=== PATIENT | female | born 1965 | race Caucasian/White ===

== ENCOUNTER 2018-01-18 11:26 | Emergency (ER) | END 2018-01-18 12:49 | disposition home or self-care (01) ==

== ENCOUNTER 2018-05-29 22:55 | Emergency (ER) | payer MEDICAID ==
[~2018-05-29] VITALS: Ht 165.1 cm; Wt 85.9 kg
[~2018-05-29 22:55] MED LIST: ALBU8.5H8 INH; AMOX500C2 PO; DM/P295L11 PO; PRED20TA PO; PROM6.2515 PO
[2018-05-29 22:58] VITALS: Ht 165.1 cm; Wt 85.9 kg
--- NOTE | 2018-05-29 23:08 | ERD ---
ER Documentation Chief Complaint Chief Complaint abdominal pain x 5 days HPI The patient is a 52-year-old female, resenting to the ER because of intermittent right-sided abdominal pain and epigastric abdominal pain for 1 week, denies similar symptoms previously, complains of intermittent cough, denies fever, nasal congestion, chest pain, dyspnea, vomiting, dysuria, diarrhea, vaginal bleeding. She does not smoke nor drink Past medical history: None Past surgical history: ROS All systems reviewed and are negative except as per history of present illness. Medications Home Meds Active Scripts Ibuprofen* (Motrin*) 600 Mg Tab, 600 MG PO Q6H PRN for PAIN AND OR ELEVATED TEMP, #20 TAB Prov:GEETHA DAWSON MD 05/30/18 Sulfamethoxazole/Trimethoprim* (Bactrim Ds* Tablet) 1 Each Tablet, 1 TAB PO BID, #14 TAB Prov:GEETHA DAWSON MD 05/30/18 Promethazine Hcl* (Promethazine Hcl* Syrup) 6.25 Mg/5 Ml Syrup, 6.25 MG PO Q6H PRN for COUGH, #60 ML Prov:JACKSON FINNEY MD 01/18/18 Albuterol Sulfate* (Proair HFA*) 8.5 Gm Hfa.aer.ad, 2 PUFF INH Q4H PRN for WHEEZING AND SOB, #1 INHALER Prov:JACKSON FINNEY MD 01/18/18 Prednisone* (Prednisone*) 20 Mg Tab, 40 MG PO DAILY for 4 Days, TAB Prov:JACKSON FINNEY MD 01/18/18 Amoxicillin* (Amoxicillin*) 500 Mg Cap, 500 MG PO TID for 7 Days, CAP Prov:JACKSON FINNEY MD 01/18/18 Reported Medications Dm/P-Ephed/Acetaminoph/Doxylam (Nyquil D Cold & Flu Liquid) 295 Ml Liquid, 295 ML PO DAILY 11/02/10 Allergies Allergies: Coded Allergies: No Known Drug Allergy (Verified Allergy, Mild, 01/18/18) PMhx/Soc History of Surgery: Yes (C SECTION X 1) Anesthesia Reaction: No Hx Neurological Disorder: No Hx Respiratory Disorders: No Hx Cardiac Disorders: No Hx Psychiatric Problems: No Hx Miscellaneous Medical Probl: No Hx Alcohol Use: No Hx Substance Use: No Hx Tobacco Use: No Physical Exam Vitals Vital Signs Date Temp Pulse Resp B/P (MAP) Pulse Ox O2 O2 Flow FiO2 Time Delivery Rate 05/29/18 98.4 83 18 136/76 97 22:58 (96) Physical Exam Const: No acute distress. Head: Atraumatic. Eyes: Normal Conjunctiva. ENT: Normal External Ears, Nose and Mouth. Neck: Full range of motion. No meningismus. Resp: Clear to auscultation bilaterally. Cardio: Regular rate and rhythm. Abd: Soft, non distended, normal bowel sounds, vague and diffuse abdominal pain, more tenderness at the right upper quadrant in the right lower quadrant, no rigidity, rebound, CVA tenderness Skin: No petechiae or rashes. Back: No midline or flank tenderness. Ext: No cyanosis, or edema. Neur: Awake and alert. No focal deficit Psych: Normal Mood and Affect. Result Diagram: 05/29/18 2319 05/29/18 2319 Results 24 hrs Laboratory Tests Test 05/29/18 23:19 05/29/18 23:31 05/30/18 01:21 White Blood Count 12.4 10^3/ul Red Blood Count 4.01 10^6/ul Hemoglobin 11.0 g/dl Hematocrit 34.5 % Mean Corpuscular Volume 86.0 fl Mean Corpuscular Hemoglobin 27.4 pg Mean Corpuscular 31.9 g/dl Hemoglobin Concent Red Cell Distribution Width 14.8 % Platelet Count 324 10^3/UL Mean Platelet Volume 10.0 fl Immature Granulocytes % 0.400 % Neutrophils % 62.1 % Lymphocytes % 25.4 % Monocytes % 7.6 % Eosinophils % 3.9 % Basophils % 0.6 % Nucleated Red Blood Cells % 0.0 /100WBC Immature Granulocytes # 0.050 10^3/ul Neutrophils # 7.7 10^3/ul Lymphocytes # 3.2 10^3/ul Monocytes # 0.9 10^3/ul Eosinophils # 0.5 10^3/ul Basophils # 0.1 10^3/ul Nucleated Red Blood Cells # 0.0 10^3/ul Sodium Level 143 mmol/L Potassium Level 3.7 mmol/L Chloride Level 98 mmol/L Carbon Dioxide Level 31 mmol/L Anion Gap 14 Blood Urea Nitrogen 14 mg/dl Creatinine 0.68 mg/dl Est Glomerular Filtrat Rate mL/min > 60 mL/min Glucose Level 114 mg/dl Calcium Level 9.2 mg/dl Total Bilirubin 0.2 mg/dl Direct Bilirubin 0.00 mg/dl Indirect Bilirubin 0.2 mg/dl Aspartate Amino Transf (AST/SGOT) 26 IU/L Alanine 20 IU/L Aminotransferase (ALT/SGPT) Alkaline Phosphatase 164 IU/L Total Protein 8.0 g/dl Albumin 4.1 g/dl Globulin 3.90 g/dl Albumin/Globulin Ratio 1.05 Lipase 70 U/L Bedside Urine pH (LAB) 5.5 Bedside Urine Protein (LAB) Negative Bedside Urine Glucose (UA) Negative Bedside Urine Ketones (LAB) Negative Bedside Urine Blood 3+ Bedside Urine Nitrite (LAB) Negative Bedside Urine Leukocyte Esterase 2+ (L POC Beta HCG, Qualitative NEGATIVE Current Medications Medications Dose Sig/Perez Start Time Status Last (Trade) Ordered Route PRN Stop Time Admin Dose Reason Admin Ketorolac 30 mg ONCE STAT 05/30/18 DC Tromethamine IV 01:21 (Toradol) 05/30/18 01:22 Procedures/[place] [id number] Radiology Main Line: [phone] DIAGNOSTIC IMAGING REPORT Patient: CUAUHTEMOC MURPHY : 1965 Age: 52 Sex: F [id number] DOS: 05/29/18 2315 Ordering MD: GEETHA DAWSON MD Location: E/R Room/Bed: PROCEDURE: CT Abdomen and pelvis without contrast. CLINICAL INDICATION: Abdominal pain. TECHNIQUE: CT scan of the abdomen and pelvis was performed on a multi- detector high-resolution CT scanner. Contiguous axial images were obtained from the lung bases to the ischial tuberosities without intravenous contrast. Coronal and sagittal reformatted images were also obtained. Images were reviewed on the PACS workstation. DICOM images are available. One or more of the following dose reduction techniques were used: - Automated exposure control. - Adjustment of the mA and/or kV according to patient size. - Use of iterative reconstruction technique. Exam CTD/vol = 21.18 mGy. Total exam DLP = 1228.45 mGy-cm. COMPARISON: None. FINDINGS: Evaluation of the lung bases demonstrates minimal bibasilar atelectasis. Abdomen: The liver is normal in size. There is no focal mass or dilatation of the biliary tree. The patient is status post cholecystectomy. The spleen, pancreas and bilateral adrenal glands are within normal limits. Bilateral kidneys are normal in size with no contour deforming mass identified. There is no radiopaque renal or ureteral calculus identified. There is bilateral minimal hydronephrosis. There is no retroperitoneal adenopathy. The abdominal aorta is of normal caliber. There is no bowel obstruction or free air. A normal appendix is identified. There is no diverticulosis or diverticulitis. There is no ascites. Pelvis: The bladder is unremarkable. The uterus is enlarged with multiple la rge fibroids with the largest measuring 12.7 x 12.7 cm. There is no significant pelvic adenopathy or free fluid. Evaluation of the osseous structures demonstrates no suspicious lytic or blastic lesion. IMPRESSION: Enlarged uterus with multiple large fibroids. Bilateral minimal hydronephrosis likely secondary to enlarged uterus. Status post cholecystectomy. .Rajiv Kruse MD, Date Time Electronically viewed and signed by .Rajiv Kruse MD, MD on 05/30/2018 01:03 .T/ CC: GEETHA DAWSON MD [phone] MEDICAL MAKING DECISION: The patient is a 52-year-old female, presenting with acute cystitis, fibroids, is stable for outpatient follow-up, was treated with Toradol 30 mg IV for pain with good response. The differential diagnoses considered include but are not limited to choledocholithiasis, cholangitis, pancreatitis, hepatitis, gastritis, peptic ulcer disease, gastric ulcer, appendicitis, cystitis, diverticulitis, partial small bowel obstruction. Departure Diagnosis: Primary Impression: UTI (urinary tract infection) Additional Impressions: Fibroids Anemia Condition: Good Comments She was discharged with Bactrim DS and Motrin I discussed the findings with the patient. I advised the patient to follow-up with the primary physician in about 2-3 days, sooner if needed and return if any concern. Disclaimer: Inadvertent spelling and grammatical errors are likely due to EHR/dictation software use and do not reflect on the overall quality of patient care. Also, please note that the electronic time recorded on this note does not necessarily reflect the actual time of the patient encounter. GEETHA DAWSON MD May 29, 2018 23:08
[2018-05-30] MEDS ORDERED: IBUP-1542 PO (01:19)
[2018-05-30] MEDS ORDERED: SULF1TAB31 PO (01:19)
[2018-05-30] MEDS ORDERED: KETOROLAC 30 MG INJ IV STA (01:21)
[2018-05-30 01:50] VITALS: BP 102/55; PULSE 65; RESP 17
== END 2018-05-30 01:50 | disposition home or self-care (01) ==
LOC: E/R 22:55
DX: N39.0 Urinary tract infection, site not specified (principal); D25.9 Leiomyoma of uterus, unspecified; D64.9 Anemia, unspecified
CPT/HCPCS: 74176; 76705; 80053; 81003; 81025; 83690; 85025; J1885; 36415; 96374

== ENCOUNTER 2018-09-25 11:41 | Emergency (ER) | payer MEDICAID ==
[~2018-09-25] VITALS: Ht 162.6 cm; Wt 87.3 kg
[~2018-09-25 11:41] MED LIST changes: +ACET-141 PO; -ALBU8.5H8 INH; -AMOX500C2 PO; +CEPH-443 PO; -DM/P295L11 PO; +IBUP-1542 PO; -PRED20TA PO; -PROM6.2515 PO; +SULF1TAB31 PO
[2018-09-25 11:44] VITALS: Ht 162.6 cm; Wt 87.3 kg
[2018-09-25 14:14] VITALS: BP 160/78; PULSE 62; RESP 16
--- NOTE | 2018-09-27 12:22 | ERD ---
ER Documentation Chief Complaint Chief Complaint bilateral foot swelling/pain HPI 53-year-old female no significant past medical history presents with bilateral foot and leg pain and swelling x3 weeks. She says that the pain is getting worse in the past few days. She states that she has 8 out of 10 pain over the bilateral lower legs and ankle. There is also swelling noted. States that the pain is worse with walking. Described as a dull sensation. She has not had prior similar symptoms. Denies fevers or chills. Denies chest pain or shortness of breath. Denies abdominal pain, nausea, vomiting. No other modifying factors noted. No treatment tried at home. ROS All systems reviewed and are negative except as per history of present illness. Medications Home Meds Active Scripts Acetaminophen* (Acetaminophen*) 500 MG Extra Strength Tablet, 500 MG PO Q4H PRN for PAIN AND OR ELEVATED TEMP, #30 TAB Prov:GEETHA DE LA CRUZ DO 09/25/18 Ibuprofen* (Motrin*) 600 Mg Tab, 600 MG PO Q6H PRN for PAIN AND OR ELEVATED TEMP, #20 TAB Prov:GEETHA DAWSON MD 05/30/18 Sulfamethoxazole/Trimethoprim* (Bactrim Ds* Tablet) 1 Each Tablet, 1 TAB PO BID, #14 TAB Prov:GEETHA DAWSON MD 05/30/18 Allergies Allergies: Coded Allergies: No Known Drug Allergy (Unverified Allergy, Mild, 05/30/18) PMhx/Soc Medical and Surgical Hx: pt denies Medical Hx History of Surgery: Yes (C SECTION X 1) Anesthesia Reaction: No Hx Neurological Disorder: No Hx Respiratory Disorders: No Hx Cardiac Disorders: No Hx Psychiatric Problems: No Hx Miscellaneous Medical Probl: No Hx Alcohol Use: No Hx Substance Use: No Hx Tobacco Use: No Smoking Status: Never smoker FmHx Family History: No coronary disease Physical Exam Vitals Vital Signs Date Temp Pulse Resp B/P (MAP) Pulse Ox O2 O2 Flow FiO2 Time Delivery Rate 09/25/18 97.9 62 16 160/78 100 Room Air 14:14 (105) 09/25/18 98.4 72 20 160/72 97 11:44 (101) Physical Exam Const: No acute distress Resp: Clear to auscultation bilaterally Cardio: Regular rate and rhythm, no murmurs Skin: No petechiae or rashes Back: No midline or flank tenderness Neur: Awake and alert Psych: Normal Mood and Affect Lower Extremity -bilateral: Skin: No laceration, mild nonpitting edemia bilateral lower legs noted Compartments: Soft Motor: Full active range of motion hip/knee/ankle/foot Sensation: Intact to light touch FDWS/MF/LF/P surfaces. Bones: Nontender pelvis/knee/proximal tibia/ malleoli/foot Joints: No effusion or laxity Pulses/Perfusion: 2+ DP, Capillary refill < 2 seconds Result Diagram: 09/25/18 1228 09/25/18 1228 Results 24 hrs Laboratory Tests Test 09/25/18 12:28 White Blood Count 6.1 10^3/ul Red Blood Count 3.76 10^6/ul Hemoglobin 9.9 g/dl Hematocrit 31.8 % Mean Corpuscular Volume 84.6 fl Mean Corpuscular Hemoglobin 26.3 pg Mean Corpuscular Hemoglobin Concent 31.1 g/dl Red Cell Distribution Width 13.7 % Platelet Count 240 10^3/UL Mean Platelet Volume 10.2 fl Immature Granulocytes % 0.200 % Neutrophils % 49.5 % Lymphocytes % 36.5 % Monocytes % 6.6 % Eosinophils % 6.2 % Basophils % 1.0 % Nucleated Red Blood Cells % 0.0 /100WBC Immature Granulocytes # 0.010 10^3/ul Neutrophils # 3.0 10^3/ul Lymphocytes # 2.2 10^3/ul Monocytes # 0.4 10^3/ul Eosinophils # 0.4 10^3/ul Basophils # 0.1 10^3/ul Nucleated Red Blood Cells # 0.0 10^3/ul Sodium Level 141 mmol/L Potassium Level 3.2 mmol/L Chloride Level 105 mmol/L Carbon Dioxide Level 29 mmol/L Anion Gap 7 Blood Urea Nitrogen 13 mg/dl Creatinine 0.56 mg/dl Est Glomerular Filtrat Rate mL/min > 60 mL/min Glucose Level 146 mg/dl Calcium Level 8.7 mg/dl Total Bilirubin 0.5 mg/dl Direct Bilirubin 0.00 mg/dl Indirect Bilirubin 0.5 mg/dl Aspartate Amino Transf (AST/SGOT) 22 IU/L Alanine Aminotransferase (ALT/SGPT) 27 IU/L Alkaline Phosphatase 94 IU/L B-Type Natriuretic Peptide 98 PG/ML Total Protein 7.6 g/dl Albumin 4.1 g/dl Globulin 3.50 g/dl Albumin/Globulin Ratio 1.17 Procedures/MDM Medical Decision Making: Differential diagnosis includes but not limited to fracture, dislocation, muscle strain, ligamentous sprain, septic joint, osteomyelitis, gout, DVT, venous insufficiency, CHF, kidney failure Patient appeared well on physical exam. There was tenderness over the bilateral lower legs and feet Patient was neurovascularly intact Patient denies fever, no recent infection, low suspicion for septic joint or osteomyelitis. ED course: CBC: no e/o of systemic infection, hemoglobin 9.9 CMP: no e/o severe acidosis, alkalosis, renal failure, diabetic ketoacidosis, liver disease, potassium 3.2 BNP 98 Imaging: Chest X-ray 1V Interpreted by me: Soft Tissue: No acute abnormalities Bones: No acute abnormalities Mediastinum/Cardiac Silhouette/Lungs: No acute abnormalities Venous Doppler ultrasound of the bilateral lower extremities negative for DVT Prescription(s): Patient given prescription for supportive medication(s). Patient advised to follow up with PCP in 1-2 days. Patient advised to return to ED for new or worsening symptoms. Patient stable on discharge from the ED. Disclaimer: Inadvertent spelling and grammatical errors are likely due to EHR/dictation software use and do not reflect on the overall quality of patient care. Also, please note that the electronic time recorded on this note does not necessarily reflect the actual time of the patient encounter. Departure Diagnosis: Primary Impression: Leg swelling Condition: Fair Patient Instructions: Understanding Chronic Venous Insufficiency Referrals: [facility] YOU HAVE RECEIVED A MEDICAL SCREENING EXAM AND THE RESULTS INDICATE THAT YOU DO NOT HAVE A CONDITION THAT REQUIRES URGENT TREATMENT IN THE EMERGENCY DEPARTMENT. FURTHER EVALUATION AND TREATMENT OF YOUR CONDITION CAN WAIT UNTIL YOU ARE SEEN IN YOUR DOCTORS OFFICE WITHIN THE NEXT 1-2 DAYS. IT IS YOUR RESPONSIBILITY TO MAKE AN APPOINTMENT FOR FOLOW-UP CARE. IF YOU HAVE A PRIMARY DOCTOR --you should call your primary doctor and schedule an appointment IF YOU DO NOT HAVE A PRIMARY DOCTOR YOU CAN CALL OUR PHYSICIAN REFERRAL HOTLINE AT IF YOU CAN NOT AFFORD TO SEE A PHYSICIAN YOU CAN CHOSE FROM THE FOLLOWING [facility] [address] [facility]. [facility] [address] [facility] [address] [facility]. [facility] [address] [facility]. [facility] [address] [facility]. [facility] [address] Additional Instructions: Llame al doctor MAANA y adán nadia FAHAD PARA DENTRO DE 1-2 MANCIA.Dgale a la secretaria que nosotros le instruimos hacer esta fahad.Avise o llame si crouch condicin se empeora antes de la fahad. Regresa aqui si peor o no mejor. por favor eleva tus GEETHA Oliver DO Sep 27, 2018 12:22
== END 2018-09-25 14:15 | disposition home or self-care (01) ==
LOC: FTE 11:41
DX: M79.89 Other specified soft tissue disorders (principal)
CPT/HCPCS: 36415; 71045; 80053; 83880; 85025; 93970; Z7502

== ENCOUNTER 2018-10-07 21:56 | Emergency (ER) | payer MEDICAID ==
[~2018-10-07] VITALS: Ht 162.6 cm; Wt 86.5 kg
[2018-10-07 22:10] VITALS: BP 185/83; PULSE 74; RESP 18; Ht 162.6 cm; Wt 86.5 kg
--- NOTE | 2018-10-08 01:10 | ERD ---
ER Documentation Chief Complaint Chief Complaint LT CUEVAS RASH SINCE LAST NIGHT HPI Patient is a 53-year-old female with no medical problems who presents with a left leg rash. The symptoms started yesterday night. She had subjective fever. She has had no treatment as of yet. She was seen here on September 25 and worked up and had normal laboratory studies and ultrasound of the leg which was negative for DVT. She was given Tylenol only upon discharge. Upon review of old medical records this is the patient's 10th visit to the ER since 2007. She does not currently have a primary doctor. ROS All systems reviewed and are negative except as per history of present illness. Medications Home Meds Active Scripts Ibuprofen* (Motrin*) 600 Mg Tab, 600 MG PO Q6H PRN for PAIN AND OR ELEVATED TEMP, #30 TAB Prov:ADONAY COLLAZO MD 10/07/18 Cephalexin* (Keflex*) 500 Mg Capsule, 500 MG PO QID for 7 Days, CAP Prov:ADONAY COLLAZO MD 10/07/18 Acetaminophen* (Acetaminophen*) 500 MG Extra Strength Tablet, 500 MG PO Q4H PRN for PAIN AND OR ELEVATED TEMP, #30 TAB Prov:GEETHA DE LA CRUZ DO 09/25/18 Ibuprofen* (Motrin*) 600 Mg Tab, 600 MG PO Q6H PRN for PAIN AND OR ELEVATED TEMP, #20 TAB Prov:GEETHA DAWSON MD 05/30/18 Sulfamethoxazole/Trimethoprim* (Bactrim Ds* Tablet) 1 Each Tablet, 1 TAB PO BID, #14 TAB Prov:GEETHA DAWSON MD 05/30/18 Allergies Allergies: Coded Allergies: No Known Drug Allergy (Unverified Allergy, Mild, 05/30/18) PMhx/Soc History of Surgery: Yes (C SECTION X 1) Anesthesia Reaction: No Hx Neurological Disorder: No Hx Respiratory Disorders: No Hx Cardiac Disorders: No Hx Psychiatric Problems: No Hx Miscellaneous Medical Probl: No Hx Alcohol Use: No Hx Substance Use: No Hx Tobacco Use: No Smoking Status: Never smoker FmHx Family History: diabetes Physical Exam Vitals Vital Signs Date Temp Pulse Resp B/P (MAP) Pulse Ox O2 O2 Flow FiO2 Time Delivery Rate 10/07/18 97.7 74 18 185/83 98 22:10 (117) Physical Exam Const: No acute distress Head: Atraumatic Eyes: Normal Conjunctiva ENT: Normal External Ears, Nose and Mouth. Neck: Full range of motion. No meningismus. Resp: Clear to auscultation bilaterally Cardio: Regular rate and rhythm, no murmurs Abd: Soft, non tender, non distended. Normal bowel sounds Skin: 4 x 4 centimeter area of erythema to the left calf consistent with cellulitis without abscess or necrotizing fasciitis Back: No midline or flank tenderness Ext: No cyanosis, or edema Neur: Awake and alert Psych: Normal Mood and Affect Procedures/MDM Patient is a 53-year-old female who presents with a left leg cellulitis. The patient will be treated with outpatient Keflex and will need to follow-up closely with the local clinics within 24 to 48 hours for reevaluation. At this point I doubt sepsis. I do not believe she requires inpatient admission at this time and I believe outpatient management is appropriate. However she can return for any worsening symptoms. Departure Diagnosis: Primary Impression: Cellulitis Site of cellulitis: extremity Site of cellulitis of extremity: lower extremity Laterality: left Qualified Codes: L03.116 - Cellulitis of left lower limb Additional Impression: Rash Condition: Fair Patient Instructions: Cellulitis [facility] Usted se valenzuela hecho un examen mdico de control que le indica que no est en nadia condicin que requiera tratamiento urgente en el Departamento de Emergencia. Un estudio ms profundo y el tratamiento de crouch condicin pueden esperar sin ningn riesgo hasta que usted sea atendida/o en el consultorio de crouch mdico o nadia clnica. Es responsabilidad suya arreglar nadia heaven para el seguimiento del jose. MANEJO DE CONDICIONES NO URGENTES EN EL FUTURO 1) Si usted tiene un mdico de atencin primaria: Usted debera llamar a crouch mdico de atencin primaria antes de venir al departamento de emergencia. Despus de las horas de consultorio, crouch doctor o crouch asociado/a est disponible por telfono. El mdico o enfermero de ofelia en el servicio telefnico puede asesorarle por sloane medio para atender el problema, o jose contrario se puede programar nadia heaven. 2) Si usted no tiene un mdico de atencin primaria: Llame al mdico o clnica de referencia que aparece abajo elliot las horas de consultorio para hacer nadia heaven para que le vean. CLINICAS: [facility] [phone] [address] [facility] [phone] [address] [facility]. [facility] [phone] [facility] [facility] [phone] [facility]. [place] [id number] [phone] [facility]. [phone] [address] Additional Instructions: Call your primary care doctor TOMORROW for an appointment during the next 1-2 days.See the doctor sooner or return here if your condition worsens before your appointment time. ADONAY COLLAZO MD Oct 08, 2018 01:10
== END 2018-10-07 22:59 | disposition home or self-care (01) ==
LOC: FTE 21:56
DX: L03.116 Cellulitis of left lower limb (principal)
CPT/HCPCS: 99283